=== PATIENT | female | born 1965 | race American Indian/Alaskan Native ===

== ENCOUNTER 2017-05-13 12:36 | Emergency (ER) | payer MEDICAID ==
[2017-05-13 13:29] LABS: Hematocrit 48.9 % (30.3-42.9); Hemoglobin 15.8 gm/dl (10.1-14.3); Mean Corpuscular HGB Conc 32 % (30-34); Mean Corpuscular Hemoglobin 31 pg (28-32); Mean Corpuscular Volume 96 fl (79-97); Platelet Count 204 K/mm3 (140-440); Red Blood Count 5.08 M/mm3 (3.65-5.03); Red Cell Distribution Width 16.9 % (13.2-15.2)
[2017-05-13 13:44] LABS: Anion Gap 17 mmol/L; BUN/Creatinine Ratio 19; Blood Urea Nitrogen 21 mg/dL (7-17); Carbon Dioxide 27 mmol/L (22-30); Chloride 101.7 mmol/L (98-107); Glucose 74 mg/dL (65-100); Sodium 142 mmol/L (137-145)
--- NOTE | 2017-05-13 14:13 | XRay Report ---
ROUTINE CHEST, TWO VIEWS: SOB. PA and lateral views demonstrate the heart and mediastinal contour to be of normal size and shape. The lungs are clear and fully expanded and the soft tissues and bony structures are normal. IMPRESSION: Normal study.
[2017-05-13 14:31] LABS: Basophils % (Manual) 0 % (0.0-1.8); Blastocytes % (Manual) 0 %; Diff Status Complete; Platelet Estimate Consistent w Auto; RBC Morphology Normal
[2017-05-13] MEDS ORDERED: ATROVENT IH ONE (21:14)
[2017-05-13] MEDS ORDERED: PROVENTIL IH ONE (21:16)
[2017-05-13] MEDS ORDERED: DECADRON PO ONE (21:17)
[2017-05-13] MEDS ORDERED: PERCOCET 5/325 PO ONE (21:19)
[2017-05-13] MEDS ORDERED: NACL 0.9% 1000 ML 1,000 ML IV ONE (23:17)
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
[2017-05-13] MEDS ORDERED: DUONEB *Not for PRN Use IH ONE (23:52)
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
[2017-05-14] MEDS ORDERED: CATAPRES PO ONE (00:43)
[2017-05-14 01:49] VITALS: BP 179/92
== END 2017-05-14 01:51 | disposition home or self-care (01) ==
LOC: ED 12:36
DX: M54.5 Low back pain (principal); J45.901 Unspecified asthma with (acute) exacerbation; M19.90 Unspecified osteoarthritis, unspecified site; I10 Essential (primary) hypertension; G43.909 Migraine, unspecified, not intractable, without status migrainosus; Z88.6 Allergy status to analgesic agent
CPT/HCPCS: 36415; 71020; 72131; 80048; 84484; 85007; 85025; 93005; 93010; 94640; 96360; 96361; 99285; J7030; J8540